=== PATIENT | male | born 1940 | race Caucasian/White ===

== ENCOUNTER 2018-12-20 07:47 | Emergency (ER) | payer MEDICARE ==
[2018-12-20] MEDS ORDERED: ADENOSINE 6 MG/2 ML VIAL IVP ONE (07:49)
[2018-12-20] MEDS ORDERED: ASPIRIN 81 MG CHEWABLE TABLET PO ONE (07:50)
[2018-12-20] MEDS ORDERED: DILTIAZEM 25MG/5ML VIAL IV ONE (07:54)
--- NOTE | 2018-12-20 07:56 | Emergency Department Record ---
History of Present Illness - General Stated Complaint: CHEST PAIN Time Seen by Provider: 12/20/18 07:49 Source: Patient - History of Present Illness Initial Comments: This morning around 0630 he was standing up preparing to eat his breakfast when he developed 9/10 bilateral arm and across chest "numbness" with clamminess, and slight shortness of breath. Now his severity is 3/10. MD Complaint: Chest pain - Related Data Allergies Allergy/AdvReac Type Severity Reaction Status Date / Time Penicillins Allergy SWELLING Verified 12/20/18 08:02 OF THE FACE Review of Systems Reviewed: No additional complaints except as noted below Constitutional: Reports: As per HPI. Denies: Chills, Fever, Malaise, Night sweats, Weakness, Weight change Eyes: Reports: As per HPI. Denies: Eye discharge, Eye pain, Photophobia, Vision change ENT: Reports: As per HPI. Denies: Congestion, Dental pain, Ear pain, Epistaxis , Hearing loss, Throat pain Respiratory: Reports: As per HPI. Denies: Cough, Dyspnea, Hemoptysis, Stridor, Wheezes Cardiovascular: Reports: As per HPI. Denies: Arrhythmia, Chest pain, Dyspnea on exertion, Edema, Murmurs, Orthopnea, Palpitations, Paroxysmal nocturnal dyspnea, Rheumatic Fever, Syncope Endocrine: Reports: As per HPI. Denies: Fatigue, Heat or cold intolerance, Polydipsia, Polyuria Gastrointestinal: Reports: As per HPI. Denies: Abdominal pain, Constipation, Diarrhea, Hematemesis, Hematochezia, Melena, Nausea, Vomiting Genitourinary: Reports: As per HPI. Denies: Dysuria, Frequency, Hematuria, Incontinence, Retention, Testicular pain, Testicular mass, Urgency Musculoskeletal: Reports: As per HPI. Denies: Arthralgia, Back pain, Gout, Joint swelling, Myalgia, Neck pain Skin: Reports: As per HPI. Denies: Bruising, Change in color, Change in hair/ nails, Lesions, Pruritus, Rash Neurological: Reports: As per HPI. Denies: Abnormal gait, Confusion, Headache, Numbness, Paresthesias, Seizure, Tingling, Tremors, Vertigo, Weakness Psychiatric: Reports: As per HPI. Denies: Anxiety, Auditory hallucinations, Depression, Homicidal thoughts, Suicidal thoughts, Visual hallucinations Hematological/Lymphatic: Reports: As per HPI. Denies: Anemia, Blood Clots, Easy bleeding, Easy bruising, Swollen glands Past Medical History - SOCIAL HISTORY Smoking Status: Former smoker - RESPIRATORY Hx Respiratory Disorders: No Comment:: Uses Simbicort but doesn't know why - CARDIOVASCULAR Hx Cardio Disorders: No - NEURO Hx Neuro Disorders: No Hx Brain Tumor: No Hx CVA: No Hx Dementia: No Hx Dizziness: No Hx Headaches: No Hx Neuropathy: No Hx Parkinson's Disease: No Hx Seizures: No Comment:: episode of left face and leg numbness, slurred speech - GI Hx GI Disorders: No - Hx Genitourinary Disorders: Yes Hx Kidney Stones: Yes Hx Prostate Problems: Yes (removed) Hx UTI: Yes - ENDOCRINE Hx Endocrine Disorders: No - MUSCULOSKELETAL Hx Musculoskeletal Disorders: Yes Hx Gout: Yes - PSYCH Hx Psych Problems: No - HEMATOLOGY/ONCOLOGY Hx Hematology/Oncology Disorders: No Family Medical History Hx Alcohol Use: Father, Brother/Sister Hx Cancer: Mother Hx Diabetes: Brother/Sister Hx Heart Disease: Father Hx HTN: Brother/Sister Physical Exam - General General Appearance: Alert, Oriented x3, Cooperative, Mild distress (upon arrival 3/10 chest numbness, which resolved in a few minutes) - Head Head exam: Normal inspection - Eye Eye exam: Normal appearance, PERRL, EOMI. negative: Conjunctival injection, Nystagmus Pupils: Normal accommodation - ENT ENT exam: Normal exam, Mucous membranes moist, Normal external ear exam, Normal orophraynx, TM's normal bilaterally Ear exam: Normal external inspection. negative: External canal tenderness Nasal Exam: Normal inspection. negative: Discharge, Sinus tenderness Mouth exam: Normal external inspection, Tongue normal Teeth exam: Normal inspection. negative: Dental caries Throat exam: Normal inspection. negative: Tonsillar erythema, Tonsillomegaly, Tonsillar exudate - Neck Neck exam: Normal inspection, Full ROM. negative: Lymphadenopathy, Meningismus , Tenderness - Respiratory Respiratory exam: Normal lung sounds bilaterally. negative: Accessory muscle use, Chest wall tenderness, Decreased breath sounds, Prolonged expiratory, Respiratory distress - Cardiovascular Cardiovascular Exam: Regular rate, Normal rhythm, Normal heart sounds, Other ( Initially rapid 150', then irregular irreg, now regular and 78) - GI/Abdominal GI/Abdominal exam: Soft, Normal bowel sounds. negative: Tenderness - Rectal Rectal exam: Deferred - exam: Deferred - Extremities Extremities exam: Normal inspection, Full ROM, Normal capillary refill. negative: Calf tenderness, Pedal edema, Tenderness - Back Back exam: Reports: Normal inspection, Full ROM. Denies: CVA tenderness (R), CVA tenderness (L), Muscle spasm, Rash noted, Tenderness - Neurological Neurological exam: Alert, CN II-XII intact, Normal gait, Oriented X3, Reflexes normal. negative: Altered, Motor sensory deficit - Psychiatric Psychiatric exam: Normal affect, Normal mood - Skin Skin exam: Dry, Intact, Normal color, Warm Course - Reevaluation(s) Reevaluation #1: 12/20/18 07:57 Initial rhythm was SVT at 150-160, then monitor began to look like a flutter with varying rate from 102 to back up to 150. Adenosine ordered, then held. Repeat EKG now shows irregularly irregular rate of 138 with atrial flutter 2:1 block, poor R wave progression anterior V leads with St depression. The patient currently is symptom free. Cardizem ordered, now held due to rate now below 80 and more regular. Will continue to observe, patient has no symptoms, aspirin given. 12/20/18 09:13 Reevaluation #2: Heparin bolus started due to 0.4 troponin. Patient informed of results, requesting transfer to [facility] for cardiology care. 12/20/18 09:14 Reevaluation #3: DW. Dr Matthews at [facility] who accepts patient in transfer. Patient and family in agreement. 12/20/18 09:20 Medical Decision Making - Data Complexity MDM Data: Labs Ordered and/or Reviewed (troponin 0.40, D dimer normal.), X-Ray Ordered and/or Reviewed (Portable CXR preliminary read by me as WNL.), EKG Ordered and/or Reviewed (EKG #1 SVT @ [address] depression laterally; EKG #2 atrial flutter with 2:1 block @ 138/minute, with prior of 03-16-14 NSR normal EKG.) - Lab Data Result diagrams: 12/20/18 07:50 12/20/18 07:50 - EKG Data -: EKG Interpreted by Me EKG: No Acute Changes (A fib/flutter with ST depression laterally, poor R wave progression.) Disposition Disposition: Transfer Clinical Impression: Elevated troponin Chest pain due to myocardial ischemia Qualifiers: Ischemic chest pain type: unspecified angina pectoris type Qualified Code(s): I25.9 - Chronic ischemic heart disease, unspecified Arrhythmia Qualifiers: Arrhythmia type: atrial flutter Atrial flutter type: unspecified Qualified Code (s): I48.92 - Unspecified atrial flutter Disposition: Acute Care Hospital Transfer Transfer To: [facility] Reason For Transfer: elevated troponin Accepting Physician: Dr. Matthews Time Discussed w/Accepting Physician: 09:26 Condition: (3) Guarded Quality - Quality Measures Quality Measures: N/A - Blood Pressure Screening Does Patient Have Any of the Following: No Blood Pressure Classification: Normal BP Reading Systolic Measurement: 107 Diastolic Measurement: 68 Screening for High Blood Pressure: Patient Exclusion, Hx of HTN [G9744]
[2018-12-20 08:05] LABS: BASO % 0.4 % (0-6); EOS % 2.6 % (0-6); GRAN % 48.4 % (47-80); HEMATOCRIT 44.3 % (42.0-52.0); HEMOGLOBIN 14.4 gm/dl (14.0-18.0); LYMPH % 42.1 % (16-45); MEAN CELL VOLUME 91.2 fl (81-97); MEAN CORPUSCULAR HEMOGLOBIN 29.6 pg (27-33); MEAN CORPUSCULAR HGB CONC 32.5 g/dl (32-36); MEAN PLATELET VOLUME 11.1 fl (7.4-10.4); MONO % 6.5 % (0-9); PLATELET COUNT 189 K/uL (130-400); RED BLOOD COUNT 4.86 M/uL (4.40-5.70); RED CELL DISTRIBUTION WIDTH 14.4 % (11.5-14.5); WHITE BLOOD COUNT W/O DIFF 8.1 K/uL (4.2-12.2)
[2018-12-20 08:36] LABS: BILIRUBIN,TOTAL 0.6 mg/dL (0.2-1.0); CREATININE 1.4 mg/dL (0.7-1.2)
[2018-12-20 08:37] LABS: TOTAL PROTEIN 6.9 g/dL (6.6-8.7)
[2018-12-20 08:41] LABS: INR 1.1; PARTIAL THROMBOPLASTIN TIME 29.9 SECONDS (24.5-39.1); PROTHROMBIN TIME (PATIENT) 10.7 SECONDS (9.5-12.1)
[2018-12-20 08:42] LABS: ALB/GLOB RATIO 1.7 (1.1-1.8); ALBUMIN 4.3 g/dL (4.0-5.0)
[2018-12-20 08:54] LABS: THYROID STIMULATING HORMONE 3.46 uIU/mL (0.270-4.20)
[2018-12-20] MEDS ORDERED: HEPARIN SODIUM 1000 UNIT/1 ML 10ML VIAL IVP ONE (09:03)
--- NOTE | 2018-12-21 16:40 | RADIOLOGY REPORT ---
DATE: 12/20/2018. EXAM: SINGLE-VIEW, CHEST RADIOGRAPH. HISTORY: CHEST PAIN AND ARRHYTHMIA. TECHNIQUE: Single frontal view of the chest. COMPARISON: Chest and rib series dated 11/29/2016. FINDINGS: Cardiac silhouette within normal size limits. No new focal pulmonary opacities. Bilateral calcified pleural plaques. No significant pleural fluid collection. No visible pneumothorax. IMPRESSION: 1. NO DEFINITE NEW FOCAL LUNG FINDINGS. 2. BILATERAL CALCIFIED PLEURAL PLAQUES APPEAR OVERALL SIMILAR TO COMPARISON STUDY. Job Number: [id number] MTDD
== END 2018-12-20 10:15 | disposition short-term general hospital (02) ==
LOC: ER 07:47
DX: I48.92 Unspecified atrial flutter (principal); R79.89 Other specified abnormal findings of blood chemistry; I25.9 Chronic ischemic heart disease, unspecified; Z87.891 Personal history of nicotine dependence
CPT/HCPCS: 71045; 80053; 83880; 84443; 84484; 85025; 85379; 85610; 85730; 93005; 93010; 96374; 99285

== ENCOUNTER 2019-02-13 18:14 | Emergency (ER) | payer MEDICARE ==
[2019-02-13] MEDS ORDERED: ASPIRIN 81 MG CHEWABLE TABLET PO ONE (18:28)
[2019-02-13 18:43] LABS: ABSOLUTE NEUTROPHIL COUNT 3.77; BASO % 0.6 % (0-6); EOS % 2.4 % (0-6); GRAN % 42.9 % (47-80); HEMATOCRIT 31.5 % (42.0-52.0); HEMOGLOBIN 10.1 gm/dl (14.0-18.0); LYMPH % 42.9 % (16-45); MEAN CELL VOLUME 92.1 fl (81-97); MEAN CORPUSCULAR HEMOGLOBIN 29.5 pg (27-33); MEAN CORPUSCULAR HGB CONC 32.1 g/dl (32-36); MEAN PLATELET VOLUME 10.4 fl (7.4-10.4); MONO % 11.2 % (0-9); PLATELET COUNT 236 K/uL (130-400); RED BLOOD COUNT 3.42 M/uL (4.40-5.70); RED CELL DISTRIBUTION WIDTH 14.7 % (11.5-14.5); WHITE BLOOD COUNT W/O DIFF 8.8 K/uL (4.2-12.2)
[2019-02-13 18:53] LABS: BLOOD UREA NITROGEN 46 mg/dL (8-23); CREATININE 1.9 mg/dL (0.7-1.2); EST GLOMERULAR FILTRATION RATE 36 mL/min
[2019-02-13] MEDS ORDERED: GUAIFENESIN/D-METH. 10 ML UDC PO ONE (18:54)
[2019-02-13 18:56] LABS: GLUCOSE,RANDOM 114 mg/dL (74-109)
--- NOTE | 2019-02-13 18:57 | Emergency Department Record ---
History of Present Illness - General Chief Complaint: Seizures Stated Complaint: POSSIBLE SEIZURE Time Seen by Provider: 02/13/19 18:28 Source: Patient, RN notes reviewed Mode of Arrival: Ambulatory - History of Present Illness Initial Comments: cough and was coughing hard and he had an episode of passing out for a few seconds while coughing and no post ictal phase and it happened once. Patient is scheduled to have stents placed in his legs for PAD>Lisinopril stopped by Dr Andrea covarrubias to help his cough. Patient had CABG 2 months ago and echo recently done and was good. Onset/Timin -: Hour(s) Duration of Episode: 10 -: Second(s) Witnessed: Yes - by bystander Trauma: No Seizure History: None Possible Precipitating Event: None Treatments Prior to Arrival: None - Related Data Home Medications Medication Instructions Recorded Confirmed Last Taken Aspirin [Aspir-Low] 81 mg PO DAILY 02/13/19 02/13/19 02/13/19 Atorvastatin Calcium [Lipitor] 40 mg PO QHS 02/13/19 02/13/19 02/12/19 Metoprolol Tartrate [Lopressor] 25 mg PO Q12H 02/13/19 02/13/19 02/13/19 Previous Rx's Medication Instructions Recorded Furosemide [Lasix] 20 mg PO DAILY #30 tablet 02/13/19 Guaifenesin/Dextromethorphan 10 ml PO Q4HR #300 liquid 02/13/19 [Robitussin Cough-Chest Dm Liq] Allergies Allergy/AdvReac Type Severity Reaction Status Date / Time Penicillins Allergy SWELLING Verified 02/13/19 18:31 OF THE FACE Travel Screening - Travel/Exposure Within Last 30 Days Have you traveled within the last 30 days?: No - Travel/Exposure Within Last Year Have you traveled outside the [place] in the last year?: No - Additonal Travel Details Have you been exposed to anyone with a communicable illness?: No Review of Systems Reviewed: No additional complaints except as noted below Constitutional: Reports: As per HPI. Denies: Chills, Fever, Malaise, Night sweats, Weakness, Weight change Eyes: Reports: As per HPI. Denies: Eye discharge, Eye pain, Photophobia, Vision change ENT: Reports: As per HPI. Denies: Congestion, Dental pain, Ear pain, Epistaxis, Hearing loss, Throat pain Respiratory: Reports: As per HPI. Denies: Cough, Dyspnea, Hemoptysis, Stridor, Wheezes Cardiovascular: Reports: As per HPI. Denies: Arrhythmia, Chest pain, Dyspnea on exertion, Edema, Murmurs, Orthopnea, Palpitations, Paroxysmal nocturnal dyspnea, Rheumatic Fever, Syncope Endocrine: Reports: As per HPI. Denies: Fatigue, Heat or cold intolerance, Polydipsia, Polyuria Gastrointestinal: Reports: As per HPI. Denies: Abdominal pain, Constipation, Diarrhea, Hematemesis, Hematochezia, Melena, Nausea, Vomiting Genitourinary: Reports: As per HPI. Denies: Dysuria, Frequency, Hematuria, Incontinence, Retention, Testicular pain, Testicular mass, Urgency Musculoskeletal: Reports: As per HPI. Denies: Arthralgia, Back pain, Gout, Joint swelling, Myalgia, Neck pain Skin: Reports: As per HPI. Denies: Bruising, Change in color, Change in hair/nails, Lesions, Pruritus, Rash Neurological: Reports: As per HPI. Denies: Abnormal gait, Confusion, Headache, Numbness, Paresthesias, Seizure, Tingling, Tremors, Vertigo, Weakness Psychiatric: Reports: As per HPI. Denies: Anxiety, Auditory hallucinations, Depression, Homicidal thoughts, Suicidal thoughts, Visual hallucinations Hematological/Lymphatic: Reports: As per HPI. Denies: Anemia, Blood Clots, Easy bleeding, Easy bruising, Swollen glands Past Medical History - SOCIAL HISTORY Smoking Status: Former smoker Alcohol Use: None Drug Use: None - RESPIRATORY Hx Respiratory Disorders: No Comment:: Uses Simbicort but doesn't know why - CARDIOVASCULAR Hx Cardio Disorders: No Hx Hypertension: Yes Hx Irregular Heartbeat: Yes - NEURO Hx Neuro Disorders: No Hx Brain Tumor: No Hx CVA: No Hx Dementia: No Hx Dizziness: No Hx Headaches: No Hx Neuropathy: No Hx Parkinson's Disease: No Hx Seizures: No Comment:: episode of left face and leg numbness, slurred speech - GI Hx GI Disorders: No - Hx Genitourinary Disorders: Yes Hx Kidney Stones: Yes Hx Prostate Problems: Yes (removed) Hx UTI: Yes - ENDOCRINE Hx Endocrine Disorders: No - MUSCULOSKELETAL Hx Musculoskeletal Disorders: Yes Hx Gout: Yes - PSYCH Hx Psych Problems: No - HEMATOLOGY/ONCOLOGY Hx Hematology/Oncology Disorders: No Family Medical History Any Significant Family History?: No Hx Alcohol Use: Father, Brother/Sister Hx Cancer: Mother Hx Diabetes: Brother/Sister Hx Heart Disease: Father Hx HTN: Brother/Sister Physical Exam - General General Appearance: Alert, Oriented x3, Cooperative, No acute distress - Head Head exam: Normal inspection - Eye Eye exam: Normal appearance, PERRL Pupils: Normal accommodation - ENT ENT exam: Normal exam, Mucous membranes moist, Normal external ear exam, Normal orophraynx, TM's normal bilaterally Ear exam: Normal external inspection. negative: External canal tenderness Nasal Exam: Normal inspection. negative: Discharge, Sinus tenderness Mouth exam: Normal external inspection, Tongue normal Teeth exam: Normal inspection. negative: Dental caries Throat exam: Normal inspection. negative: Tonsillar erythema, Tonsillar exudate - Neck Neck exam: Normal inspection, Full ROM. negative: Tenderness - Respiratory Respiratory exam: Normal lung sounds bilaterally. negative: Respiratory distress - Cardiovascular Cardiovascular Exam: Regular rate, Normal rhythm, Normal heart sounds - GI/Abdominal GI/Abdominal exam: Soft, Normal bowel sounds. negative: Tenderness - Rectal Rectal exam: Deferred - exam: Deferred - Extremities Extremities exam: Normal inspection, Full ROM, Normal capillary refill. negative: Tenderness - Back Back exam: Reports: Normal inspection, Full ROM. Denies: Muscle spasm, Rash noted, Tenderness - Neurological Neurological exam: Alert, Normal gait, Oriented X3, Reflexes normal - Psychiatric Psychiatric exam: Normal affect, Normal mood - Skin Skin exam: Dry, Intact, Normal color, Warm Course Vital Signs 02/13/19 18:17 Temperature 97.5 F L Pulse Rate 88 Respiratory 16 Rate Blood Pressure 130/70 Pulse Ox 97 Medical Decision Making - Data Complexity MDM Data: Labs Ordered and/or Reviewed, X-Ray Ordered and/or Reviewed (right pleural effusion), EKG Ordered and/or Reviewed (NSR no acute changes ) - Lab Data Result diagrams: 02/13/19 17:35 02/13/19 17:35 Lab Results 02/13/19 Range/Units 17:35 WBC 8.8 (4.2-12.2) K/uL RBC 3.42 L (4.40-5.70) M/uL Hgb 10.1 L (14.0-18.0) gm/dl Hct 31.5 L (42.0-52.0) % MCV 92.1 (81-97) fl MCH 29.5 (27-33) pg MCHC 32.1 (32-36) g/dl RDW 14.7 H (11.5-14.5) % Plt Count 236 (130-400) K/uL MPV 10.4 (7.4-10.4) fl Gran % 42.9 L (47-80) % Lymphocytes % 42.9 (16-45) % Monocytes % 11.2 H (0-9) % Eosinophils % 2.4 (0-6) % Basophils % 0.6 (0-6) % Absolute Neutrophils 3.77 Disposition Clinical Impression: Cough, Pleural effusion Syncope Qualifiers: Syncope type: vasovagal syncope Qualified Code(s): R55 - Syncope and collapse Disposition: Home, Self-Care Condition: (1) Good Instructions: Syncope (ED) Additional Instructions: follow up with Dr Pollard in one week call me tomorrow in the office and let me know how he is doing use robitussin DM 10 ml every 4 hours Prescriptions: Guaifenesin/Dextromethorphan [Robitussin Cough-Chest Dm Liq] 10 ml PO Q4HR #300 liquid Furosemide [Lasix] 20 mg PO DAILY #30 tablet Forms: Patient Portal Access Time of Disposition: 19:12 Quality - Quality Measures Quality Measures: N/A - Blood Pressure Screening Does Patient Have Any of the Following: No, Active Dx of HTN Blood Pressure Classification: Pre-Hypertensive BP Reading Systolic Measurement: 130 Diastolic Measurement: 70 Screening for High Blood Pressure: Patient Exclusion, Hx of HTN [G9744]
[2019-02-13] MEDS ORDERED: FUROSEMIDE 20 MG TABLET PO ONE (19:10)
--- NOTE | 2019-02-15 12:28 | RADIOLOGY REPORT ---
STUDY: Chest 2 views. CLINICAL HISTORY: Cough, possible seizure. COMPARISON: 12/20/2018 FINDINGS: The cardiomediastinal silhouette is normal in size. The pulmonary vasculature is not overly congested. There is a new moderate right pleural effusion causing atelectasis of the right lower lung. Calcified pleural plaques are noted bilaterally. No pneumothorax is seen. IMPRESSION: New moderate right pleural effusion causing atelectasis of the right lower lung. Contrast-enhanced chest CT is recommended to exclude underlying malignancy. MTDD
== END 2019-02-13 19:33 | disposition home or self-care (01) ==
LOC: ER 18:14
DX: R55 Syncope and collapse (principal); J90 Pleural effusion, not elsewhere classified; R05 Cough; R20.0 Anesthesia of skin; I10 Essential (primary) hypertension; I73.9 Peripheral vascular disease, unspecified; Z95.1 Presence of aortocoronary bypass graft; Z87.891 Personal history of nicotine dependence
CPT/HCPCS: 71046; 80048; 84484; 85025; 85730; 93005; 93010; 99284